=== PATIENT | male | born 1955 | race Caucasian/White ===

== ENCOUNTER 2019-06-28 09:44 | Day surgery (SDC) | payer OTHER ==
[2019-06-27 17:41] VITALS: BMI 33.6
[2019-06-28] MEDS ORDERED: ROPIVACAINE HCL 0.5% 30ML VIAL ONE (12:21)
[2019-06-28] MEDS ORDERED: MIDAZOLAM HCL 2 MG/2 ML SINGLE DOSE VIAL ONE (12:21)
[2019-06-28] MEDS ORDERED: KETOROLAC TROMETHAMINE 30 MG/1 ML VIAL ONE (14:52)
[2019-06-28] MEDS ORDERED: ceFAZolin SODIUM 1 GM VIAL ONE ×2 (14:52)
[2019-06-28] MEDS ORDERED: DEXAMETHASONE SOD PHOSPHATE 4 MG/1 ML VIAL ONE (14:52)
[2019-06-28] MEDS ORDERED: ONDANSETRON 4 MG/2 ML VIAL ONE (14:52)
[2019-06-28] MEDS ORDERED: oxyCODONE HCL 5 MG TABLET PO PRN (14:58)
[2019-06-28] MEDS ORDERED: PROMETHAZINE HCL 25 MG/1 ML VIAL IVPUSH PRN (14:58)
[2019-06-28] MEDS ORDERED: ONDANSETRON 4 MG/2 ML VIAL IVPUSH PRN (14:58)
--- NOTE | 2019-06-28 15:34 | OP ---
DATE OF OPERATION: 06/28/2019 PREOPERATIVE DIAGNOSIS: Right shoulder rotator cuff tear. POSTOPERATIVE DIAGNOSES: 1. Adhesive capsulitis, right shoulder. 2. Adhesions within the joint. 3. Glenoid labral tear. 4. Rotator cuff tear. 5. Impingement from lateral clavicle including the articular portion. 6. Impingement from acromion. 7. Extensive Joint Debridement PROCEDURES PERFORMED: 1. Manipulation of adhesive capsulitis frozen shoulder under anesthesia. 2. Lysis and resection of adhesions within the joint. 3. Glenoid labral resection. 4. Rotator cuff debridement for partial-thickness rotator cuff tear. 5. Lateral clavicular resection including the articular surface, a Venus procedure. 6. Acromioplasty of lateral acromion. 7. Extensive debridement within the joint for extensive debris. SURGEON: Damien Mcrae MD CASTING CARRIER: JANELL Gabriel ANESTHESIA: Cliff Early MD. TYPE OF ANESTHESIA: Interscalene block with general anesthesia augmentation. DESCRIPTION OF PROCEDURE: The procedure consisted of the patient being brought into the operating room and gently transferred from the stretcher to the OR table with all bony prominences well padded. The right shoulder was prepared and draped in a sterile fashion. The patient was given intravenous antibiotics and copious irrigation throughout the procedure to minimize risk for infection. A complete risk, benefit, alternative discussion was conducted with the patient, which was inclusive of, but not limited to, infection, bleeding, , paralysis, increased pain, need for repeat surgery. Patient asked questions, understood the procedure, and desired to proceed with surgical treatment. Following the sterile preparation and draping of the right shoulder, a gentle manipulation under anesthesia had been performed. It should be noted the patient had been placed in the right side up lateral decubitus position with all bony prominences well padded. A pillow was placed below the legs and a pillow between the legs to protect the neurovascular structures of the legs. The body was supported through a pneumatic conforming patient support. An axillary roll was placed to protect the lower shoulder. The neck was protected and kept in good alignment by the anesthesiologist. The face was protected throughout the procedure by the anesthesiologist. Prior to manipulation, the shoulder abduction was limited to 90 degrees, flexion to 90 degrees, extension 10 degrees, internal rotation 60 degrees, external rotation 10 degrees. Following manipulation, abduction was to 160 degrees, flexion to 160 degrees, extension 30 degrees, internal rotation 90 degrees, external rotation 30 degrees. The glenohumeral joint was evaluated. There were adhesions within the joint making the movement of the shoulder difficult and creating the adhesive capsulitis and frozen shoulder. It should be noted that the anterior, posterior, and lateral portals were used to introduce the arthroscope and arthroscopic instruments. The anterior portal was fabricated using a transfer jose j using the inside-out method to protect the neurovascular structures of the anterior shoulder. The glenohumeral joint had the adhesions removed. There was noted to be extensive debris in the glenohumeral joint, and the joint debridement was also performed. Anterior and posterior recesses were without loose body or plica. There was noted to be integrity of the biceps tendon and the middle glenohumeral ligament. There was noted to be tearing of the glenoid labrum, and a glenoid labral resection was performed. The articular side rotator cuff was noted to have a tear, and this was debrided using shaver and radiofrequency wand. It was probed and found to be partial thickness rather than full thickness. The shoulder joint was copiously irrigated, and our attention was turned to the subacromial space. It should be noted that the 1st water quality assistant, Joselito Recinos, was critical for assisting in the surgery in that as I used the shaver and radiofrequency wand he held the arthroscope. His presence was critical for a safe surgical treatment for the shoulder. The subacromial space was then evaluated. There was noted to be inflamed bursal tissue, and extensive bursectomy was performed. Rotator cuff on the bursal side was found to be intact. The outer edge of acromion was creating impingement, and this was debrided, and high-speed bur and shaver were used to resect a wedge of bone thick anteriorly, thin posteriorly. Lateral clavicle including the articular portion was also creating impingement, and this was debrided, and a high-speed burring shaver was used to resect the lateral clavicle including the articular portion. A Venus procedure was performed. The shoulder joint was then copiously irrigated with sterile saline irrigant. The wounds were closed with 4-0 undyed Vicryl followed by Steri-Strips, Xeroform, 4 x 4's, Combine, and Elastoplast. The patient was then gently awoken from anesthesia without incident and transferred from the operating room to the recovery room in satisfactory condition. A shoulder immobilizer had also been applied. Gabriel [id number] MTDD
[2019-06-28 15:39] VITALS: TEMP 98
[2019-06-28 16:26] VITALS: BP 132/78; PULSE 86
--- NOTE | 2019-07-03 13:34 | PATH ---
Surgical Pathology Report Patient Name: GUERO STEWART [facility]. Rec. #: [id number] /Age/Gender: 1955 (Age: 63) / M Account: [id number] Location: [facility] AMBULATORY Taken: 06/28/2019 Received: 06/28/2019 Reported: 07/03/2019 Physicians: Damien Mcrae M.D. Specimen(s) Received RIGHT SHOULDER SHAVINGS Clinical History Right shoulder impingement syndrome Final Diagnosis SHOULDER, RIGHT, ARTHROSCOPIC SHAVINGS: FIBROCOLLAGENOUS TISSUE AND BONE. Electronically Signed Geeta Freeman M.D. Gross Description Received in formalin, labeled "right shoulder shavings," is a 1.4 x 1.0 x 0.2 cm. aggregate of montalvo-yellow soft tissue fragments. The formalin is filtered and the specimen is entirely submitted in one cassette. /07/01/2019 saudi07/01/2019
== END 2019-06-28 16:26 | disposition home or self-care (01) ==
LOC: FASU 09:44
PROVIDERS: ATTEND Orthopaedic Surgery
PROC: 0RBJ4ZZ Excision of Right Shoulder Joint, Percutaneous Endoscopic Approach (ICD-10-PCS; 2019-06-28)
PROC: 0PB94ZZ Excision of Right Clavicle, Percutaneous Endoscopic Approach (ICD-10-PCS; 2019-06-28)
PROC: 0RNJXZZ Release Right Shoulder Joint, External Approach (ICD-10-PCS; 2019-06-28)
PROC: 0LQ14ZZ Repair Right Shoulder Tendon, Percutaneous Endoscopic Approach (ICD-10-PCS; principal; 2019-06-28 12:00)
DX: M75.111 Incomplete rotator cuff tear or rupture of right shoulder, not specified as traumatic (principal); M75.01 Adhesive capsulitis of right shoulder; S43.401A Unspecified sprain of right shoulder joint, initial encounter; X58.XXXA Exposure to other specified factors, initial encounter; Y93.9 Activity, unspecified; Y92.9 Unspecified place or not applicable; M75.41 Impingement syndrome of right shoulder
CPT/HCPCS: 82962; 88304-TC; 94760